=== PATIENT | female | born 1980 | race Caucasian/White ===

== ENCOUNTER 2016-06-02 09:27 | Emergency (ER) | payer OTHER ==
[2016-06-02 09:39] VITALS: BP 123/79; PULSE 96; TEMP 98.6; BMI 22.6
[2016-06-02] MEDS ORDERED: ONDANSETRON *ODT* 4 MG TABLET SL ONE (09:55)
[2016-06-02] MEDS ORDERED: ONDANSETRON *ODT* 4 MG TABLET ONE (10:02)
--- NOTE | 2016-06-02 10:03 | PDOC ---
History of Present Illness - General Chief Complaint: Nausea/Vomiting Stated Complaint: ABD PAIN, VOMITING Time Seen by Provider: 06/02/16 09:49 History Source: Patient Exam Limitations: No Limitations - History of Present Illness Initial Comments: CHIEF COMPLAINT: 36 y/o afebrile female with no significant PMH c/o nausea and vomiting since 6am. HISTORY OF PRESENT ILLNESS: The patient admits both of her children had the stomach bug a few days ago. She states since she's started vomiting she's had a headache. She denies f/c, cough, runny nose, CP, SOB, abd pain, diarrhea, back pain, hematuria. She has not attempted to eat or drink anything today. Her LMP was 05/21/16. Vital signs on arrival are within normal limits. REVIEW OF SYSTEMS: GENERAL/CONSTITUTIONAL: No fever/chills. No weakness. No weight change. HEAD, EYES, EARS, NOSE AND THROAT: No change in vision. No ear pain or discharge. No sore throat. CARDIOVASCULAR: No chest pain or shortness of breath. RESPIRATORY: No cough, wheezing, or hemoptysis. GASTROINTESTINAL: +nausea and vomiting. No diarrhea or constipation. No abd pain. GENITOURINARY: No dysuria, frequency, or change in urination. MUSCULOSKELETAL: No joint or muscle swelling or pain. No neck or back pain. SKIN: No rash or easy bruising. NEUROLOGIC: +headache. No vertigo, loss of consciousness, or loss of sensation. PHYSICAL EXAM: GENERAL: The patient is awake, alert, and fully oriented, in no acute distress. She is non toxic but ill appearing. HEAD: Normal with no signs of trauma. ENT: Pupils equal, round and reactive to light, extraocular movements intact, sclera anicteric, conjunctiva clear. Neck supple. Mucous membranes moist. LUNGS: Clear to auscultation bilaterally. Normal excursion. No respiratory distress or use of accessory muscles. CV: RRR, S1/S2, no MRG. Cap refill < 2 sec. ABDOMEN: Soft, non-distended, TTP of suprapubic region. Negative bhatti's sign. No rebound, guarding, rigidity. BACK: No CVA TTP b/l. EXTREMITIES: Normal range of motion, no edema. NEUROLOGICAL: Normal speech, normal gait. CN II-XII grossly intact. PSYCH: Normal mood, normal affect. SKIN: Warm, dry, normal turgor, no rashes or lesions noted. Past History - Past Medical History Allergies/Adverse Reactions: Allergies Allergy/AdvReac Type Severity Reaction Status Date / Time No Known Allergies Allergy Verified 06/02/16 09:36 Home Medications: Ambulatory Orders Ondansetron [Zofran Odt -] 4 mg SL TID #3 od.tablet 06/02/16 Thyroid Disease: No Other medical history: denies - Immunization History Immunization Up to Date: Yes - Psycho/Social/Smoking Cessation Hx Anxiety: No Suicidal Ideation: No Smoking Status: No Smoking History: Never smoked Have you smoked in the past 12 months: No Number of Cigarettes Smoked Daily: 0 Information on smoking cessation initiated: No Hx Alcohol Use: No Drug/Substance Use Hx: No Substance Use Type: None *Physical Exam - Vital Signs Last Vital Signs Temp Pulse Resp BP Pulse Ox 98.6 F 96 H 17 123/79 99 06/02/16 09:35 06/02/16 09:35 06/02/16 09:35 06/02/16 09:35 06/02/16 09:35 Medical Decision Making - Medical Decision Making A/P: 36 y/o afebrile female with gastroenteritis. Plan is as follows: 1. UA/hcg 2. SL zofran hcg - negative Will give IM toradol for headache. Will discharge the patient home with Gastroenteritis instructions and rx for zofran. Suggested she take tylenol for headache if needed. Instructed her to refrain from eating/drinking anything for the next 12 hours and then slowly reintroduce room temperature liquids. Instructed her to f/u with her doctor on Saturday and return to the ER with any worsening or concerning symptoms. The patient verbalizes understanding of all instructions, has no further questions and is awaiting discharge. *DC/Admit/Observation/Transfer Diagnosis at time of Disposition: Gastroenteritis - Discharge Dispostion Disposition: HOME Condition at time of disposition: Improved - Prescriptions Prescriptions: Ondansetron [Zofran Odt -] 4 mg SL TID #3 od.tablet - Referrals Referrals: Homa Garcia MD [Primary Care Provider] - Call tomorrow - Patient Instructions Printed Discharge Instructions: Gastroenteritis Diet, DI for Viral Gastroenteritis -- Adult Additional Instructions: Discharge Instructions: -Avoid eating/drinking for the next 12 hours -Take zofran for nausea and tylenol for headache if needed -Get plenty of rest -This evening, start slowly sipping room temperature liquids and advance bland diet if tolerated -Follow up with your doctor within 1 week -Return to the ER with any worsening or concerning symptoms
[2016-06-02 11:06] LABS: URINE APPEARANCE SLCLOUDY; URINE BILIRUBIN NEGATIVE (NEGATIVE); URINE COLOR YELLOW; URINE GLUCOSE (UA) NEGATIVE (NEGATIVE); URINE KETONE NEGATIVE (NEGATIVE); URINE LEUK ESTERASE NEGATIVE (NEGATIVE); URINE NITRITE NEGATIVE (NEGATIVE); URINE PROTEIN NEGATIVE (NEGATIVE); URINE UROBILINOGEN NEGATIVE E.U./dl (0.2-1.0)
[2016-06-02 11:09] LABS: URINE BLOOD 1+ (NEGATIVE)
[2016-06-02 11:10] LABS: URINE MUCUS MANY; URINE RBC 4 /hpf (0-3); URINE WBC <1 /hpf (3-5)
[2016-06-02] MEDS ORDERED: KETOROLAC TROMETHAMINE 60 MG/2 ML VIAL IM ONE (11:14)
[2016-06-02] MEDS ORDERED: KETOROLAC TROMETHAMINE 60 MG/2 ML VIAL ONE (11:20)
== END 2016-06-02 11:56 | disposition home or self-care (01) ==
LOC: JERFT 09:27
PROC: 3E0233Z Introduction of Anti-inflammatory into Muscle, Percutaneous Approach (ICD-10-PCS; principal; 2016-06-02)
DX: K52.9 Noninfective gastroenteritis and colitis, unspecified (principal)
CPT/HCPCS: 81003; 81015; 84703; 96372; 99281-25

== ENCOUNTER 2016-06-25 08:24 | Emergency (ER) | payer OTHER ==
[2016-06-25 08:37] VITALS: BP 108/77; PULSE 96; TEMP 98.2; BMI 23.3
[2016-06-25] MEDS ORDERED: ACETAMINOPHEN 500 MG TABLET (FP) ONE (09:08)
--- NOTE | 2016-06-25 10:19 | PDOC ---
History of Present Illness - General Chief Complaint: Cold Symptoms Stated Complaint: COUGH,SORE THROAT,EARACHE Time Seen by Provider: 06/25/16 08:59 History Source: Patient Exam Limitations: No Limitations - History of Present Illness Initial Comments: 06/25/16 10:16 My chief complaint: Bilateral ear pain, sore throat, productive cough with yellowish phlegm 3 days History of present illness: Patient is a 36-year-old female with no significant medical history who works with [employer] and here today complaining of bilateral ear pain, stroke pain and productive cough with yellowish phlegm 3 days. Patient reports that she has chest discomfort when coughing. Patient denies any difficulty breathing. Patient denies having influenza vaccine. Patient reports that a lot of the children are sick and staff as well. Patient does not have any difficulty swallowing. Patient does not have any hearing loss. Timing/Duration: unsure, getting worse Severity: moderate Associated Symptoms: reports: fever/chills, other (ear pain, cough , sore throat ) Past History - Past Medical History Allergies/Adverse Reactions: Allergies Allergy/AdvReac Type Severity Reaction Status Date / Time No Known Allergies Allergy Verified 06/25/16 08:32 Home Medications: Ambulatory Orders Azithromycin [Zithromax 250mg Tablets -] 250 mg PO UTDICT #6 tab 06/25/16 Fexofenadine HCl [Chichi Allergy] 180 mg PO DAILY #7 tablet 06/25/16 Guaifenesin Dm [Mucinex Dm -] 1 tab PO Q12H PRN #10 tab.er.12h MDD 2 06/25/16 Thyroid Disease: No Other medical history: DENIES. - Immunization History Immunization Up to Date: Yes - Psycho/Social/Smoking Cessation Hx Anxiety: No Suicidal Ideation: No Smoking Status: No Smoking History: Never smoked Have you smoked in the past 12 months: No Number of Cigarettes Smoked Daily: 0 Hx Alcohol Use: No Drug/Substance Use Hx: No Substance Use Type: None Review of Systems - Review of Systems Able to Perform ROS?: Yes Constitutional: Yes: Chills, Fever HEENTM: Yes: Ear Pain (b/l ), Throat Pain Respiratory: Yes: Cough, Productive cough (yellowish ) Cardiac (ROS): Yes: Chest Pain (when coughing ) ABD/GI: No: Symptoms Reported : No: Symptoms Reported Musculoskeletal: No: Symptoms Reported Integumentary: No: Symptoms Reported Neurological: No: Symptoms reported *Physical Exam - Vital Signs Last Vital Signs Temp Pulse Resp BP Pulse Ox 98.2 F 96 H 20 108/77 98 06/25/16 08:32 06/25/16 08:32 06/25/16 08:32 06/25/16 08:32 06/25/16 08:32 - Physical Exam General Appearance: Yes: Appropriately Dressed HEENT: positive: Pharyngeal Erythema, TM Erythema (b/l ). negative: Tonsillar Exudate, Tonsillar Erythema, Nasal Congestion, Rhinorrhea, Sinus Tenderness Neck: negative: Lymphadenopathy (R), Lymphadenopathy (L) Respiratory/Chest: positive: Lungs Clear, Normal Breath Sounds. negative: Chest Tender, Respiratory Distress Cardiovascular: positive: Regular Rhythm, Regular Rate, S1, S2 Integumentary: positive: Normal Color ED Treatment Course - ADDITIONAL ORDERS Additional order review: 06/25/16 09:00 Influenza Types A,B Antigen ([facility]SON) - Final Nasopharyngeal Swab - Final 06/25/16 09:00 Group A Strep Rapid Antigen - Final Throat Medical Decision Making - Medical Decision Making 06/25/16 10:17 Patient is a 36-year-old female with no significant medical history who works with [employer] and here today complaining of bilateral ear pain, stroke pain and productive cough with yellowish phlegm 3 days. Patient reports that she has chest discomfort when coughing. Patient denies any difficulty breathing. Patient denies having influenza vaccine. Patient reports that a lot of the children are sick and staff as well. Patient does not have any difficulty swallowing. Patient does not have any hearing loss. Productive cough, Pharyngitis Otitis media Plan: Mucinex DM 1 tab every 12 hours when necessary coughing Chichi 180 mg daily 7 days Azithromycin 250 mg 2 tablets today then 1 tab daily for following 4 days Tylenol 1 g here *DC/Admit/Observation/Transfer Diagnosis at time of Disposition: Bronchitis Otitis media Qualifiers: Otitis media type: unspecified Laterality: bilateral Chronicity: unspecified Qualified Code(s): H66.93 - Otitis media, unspecified, bilateral - Discharge Dispostion Disposition: HOME Condition at time of disposition: Stable - Patient Instructions Additional Instructions: DRink A lot a fluids and rest Return to emergency room if symptoms worsen any difficulty breathing or new symptoms develop Follow-up with your primary care provider within the next few days Patient voiced understanding of discharge instructions and all questions were answered - Post Discharge Activity Work/School Note: Back to Work
== END 2016-06-25 10:29 | disposition home or self-care (01) ==
LOC: JERFT 08:24
DX: J20.9 Acute bronchitis, unspecified (principal); H66.93 Otitis media, unspecified, bilateral
CPT/HCPCS: 87070; 87430; 87804; 99281-25

== ENCOUNTER 2016-08-20 15:56 | Emergency (ER) | payer OTHER ==
[2016-08-20 16:04] VITALS: TEMP 97.6
--- NOTE | 2016-08-20 16:36 | PDOC ---
History of Present Illness - General History Source: Patient Exam Limitations: No Limitations - History of Present Illness Initial Comments: 08/20/16 16:46 Patient is a 36 year old female, , 5 weeks with no significant past medical history who presents to the ED with abdominal cramping. Patient notes that she developed abdominal cramping earlier today localized to the suprapubic region and when she went to urinate she noticed scant blood on the tissue. She notes her LMP was 07/11/16. She denies fever, chills, nausea, vomiting, diarrhea, constipation, chest pain, SOB, headache or blurry vision. She denies dyuria, hematuria, urgency, frequency or vaginal discharge. PSH: 1 <Bruna Gao - Last Filed: 08/20/16 17:04> <Desi Morrell - Last Filed: 08/20/16 20:52> - General Chief Complaint: Vaginal Bleeding Stated Complaint: VAGINAL BLEEDING, 5 WKS Time Seen by Provider: 08/20/16 16:28 Past History <Bruna Gao - Last Filed: 08/20/16 17:04> - Past Medical History Thyroid Disease: No - Immunization History Immunization Up to Date: Yes - Psycho/Social/Smoking Cessation Hx Anxiety: No Suicidal Ideation: No Smoking Status: No Smoking History: Never smoked Have you smoked in the past 12 months: No Number of Cigarettes Smoked Daily: 0 Information on smoking cessation initiated: No Hx Alcohol Use: No Drug/Substance Use Hx: No Substance Use Type: None <Desi Morrell - Last Filed: 08/20/16 20:52> - Past Medical History Allergies/Adverse Reactions: Allergies Allergy/AdvReac Type Severity Reaction Status Date / Time No Known Allergies Allergy Verified 08/20/16 16:02 Home Medications: Ambulatory Orders NK [No Known Home Medication] 08/20/16 Review of Systems - Review of Systems Able to Perform ROS?: Yes Comments:: 08/20/16 16:47 CONSTITUTIONAL: Absent: fever, chills, diaphoresis, generalized weakness, malaise, loss of appetite HEENT: Absent: rhinorrhea, nasal congestion, throat pain, throat swelling, difficulty swallowing, mouth swelling, ear pain, eye pain, visual Changes CARDIOVASCULAR: Absent: chest pain, syncope, palpitations, irregular heart rate, lightheadedness , peripheral edema RESPIRATORY: Absent: cough, shortness of breath, dyspnea with exertion, orthopnea, wheezing, stridor, hemoptysis GASTROINTESTINAL: Present: abdominal cramping Absent: abdominal pain, abdominal distension, nausea, vomiting, diarrhea, constipation, melena, hematochezia GENITOURINARY: Absent: dysuria, frequency, urgency, hesitancy, hematuria, flank pain, genital pain MUSCULOSKELETAL: Absent: myalgia, arthralgia, joint swelling SKIN: Absent: rash, itching, pallor HEMATOLOGIC/IMMUNOLOGIC: Absent: easy bleeding, easy bruising, lymphadenopathy, frequent infections ENDOCRINE: Absent: unexplained weight gain, unexplained weight loss, heat intolerance, cold intolerance NEUROLOGIC: Absent: headache, focal weakness or paresthesias, dizziness, unsteady gait, seizure, mental status changes, bladder or bowel incontinence PSYCHIATRIC: Absent: anxiety, depression, suicidal or homicidal ideation, hallucinations. <Bruna Gao - Last Filed: 08/20/16 17:04> *Physical Exam - Vital Signs Last Vital Signs Temp Pulse Resp BP Pulse Ox 97.6 F 111 H 20 128/88 100 08/20/16 16:02 08/20/16 16:02 08/20/16 16:02 08/20/16 16:02 08/20/16 16:02 - Physical Exam Comments: 08/20/16 16:47 GENERAL: Well developed, well nourished. Awake and alert. No acute distress. HEENT: Normocephalic, atraumatic. PERRLA, EOMI. No conjunctival pallor. Sclera are non- icteric. Moist mucous membranes. Oropharynx is clear. NECK: Supple. Full ROM. No JVD. Carotid pulses 2+ and symmetric, without bruits. No thyromegaly. No lymphadenopathy. CARDIOVASCULAR: Regular rate and rhythm. No murmurs, rubs, or gallops. Distal pulses are 2+ and symmetric. PULMONARY: No evidence of respiratory distress. Lungs clear to auscultation bilaterally. No wheezing, rales or rhonchi. ABDOMINAL: Soft. Non-tender. Non-distended. No rebound or guarding. No organomegaly. Normoactive bowel sounds. MUSCULOSKELETAL Normal range of motion at all joints. No bony deformities or tenderness. No CVA tenderness. EXTREMITIES: No cyanosis. No clubbing. No edema. No calf tenderness. SKIN: Warm and dry. Normal capillary refill. No rashes. No jaundice. NEUROLOGICAL: Alert, awake, appropriate. Cranial nerves 2-12 intact. No deficits to light touch and temperature in face, upper extremities and lower extremities. No motor deficits in the in face, upper extremities and lower extremities. Normoreflexic in the upper and lower extremities. Normal speech. PSYCHIATRIC: Cooperative. Good eye contact. Appropriate mood and affect. PELVIC: +scant blood reported. <Bruna Gao - Last Filed: 08/20/16 17:04> - Vital Signs Last Vital Signs Temp Pulse Resp BP Pulse Ox 97.6 F 111 H 20 128/88 100 08/20/16 16:02 08/20/16 16:02 08/20/16 16:02 08/20/16 16:02 08/20/16 16:02 <Desi Morrell - Last Filed: 08/20/16 20:52> ED Treatment Course - LABORATORY CBC & Chemistry Diagram: 08/20/16 17:00 <Desi Morrell - Last Filed: 08/20/16 20:52> Medical Decision Making - Medical Decision Making 08/20/16 16:51 36 yo female LMP 07/11/16 -saw ob a few weeks -had US but was dave too soon to see fetus -today had cramping and when shew urinated there was blood on bathroom tissue pmh psh c section for breech imp threatened ab plan cbc type and screen bhcg ,transvag US 08/20/16 20:25 concern for miscarriage versus ectopic -bhcg 1307 but no IUP -no ovary abnormalities -plan repeat bhcg in 48 hours <Desi Morrell - Last Filed: 08/20/16 20:52> *DC/Admit/Observation/Transfer - Attestations Scribe Attestion: 08/20/16 16:48 Documentation prepared by BISHNU Wilks, acting as medical research scientist for Desi Morrell MD. <Bruna Gao - Last Filed: 08/20/16 17:04> <Desi Morrell - Last Filed: 03/27/17 20:52> Diagnosis at time of Disposition: Threatened - Discharge Dispostion Disposition: HOME Condition at time of disposition: Stable - Referrals Referrals: Edie Abebe NP [Primary Care Provider] - - Patient Instructions Printed Discharge Instructions: DI for Threatened Additional Instructions: There is no visible on the ultrasound but you do have a posItive blood test You may be losing the OR is could be an ectopic YOU MUST HAVE A RETURN FOR A REPEAT ULTRASOUND AND BHCG IN 48 HOURS
[2016-08-20 17:16] LABS: BASOPHIL 0.2 % (0-2.0); EOSINOPHIL 0.1 % (0-4.5); MCH 31.8 pg (25.7-33.7); MCHC 33.9 g/dl (32.0-36.0); MEAN CELL VOLUME 93.9 fl (80-96); NEUTROPHILS 76.2 % (42.8-82.8); PLATELET COUNT 309 K/MM3 (134-434); WHITE BLOOD COUNT 8.9 K/mm3 (4.0-10.0)
[2016-08-20] MEDS ORDERED: ACETAMINOPHEN 325 MG TABLET (FP) ONE (20:13)
[2016-08-20] MEDS ORDERED: ACETAMINOPHEN 500 MG TABLET (FP) PO ONE (20:19)
[2016-08-20 21:08] VITALS: BP 112/89; PULSE 89
== END 2016-08-20 21:08 | disposition home or self-care (01) ==
LOC: JER 15:56
DX: O20.0 Threatened abortion (principal); Z3A.01 Less than 8 weeks gestation of pregnancy
CPT/HCPCS: 36415; 76817-TC; 84702; 85025; 86850; 86900; 86901; 99283-25

== ENCOUNTER 2017-03-06 07:38 | Emergency (ER) | payer OTHER ==
[2017-03-06 07:46] VITALS: BP 120/80; PULSE 72; TEMP 98.7; BMI 26.6
--- NOTE | 2017-03-06 08:19 | PDOC ---
History of Present Illness - General History Source: Patient - History of Present Illness Timing/Duration: reports: other (2 days ago) Associated Symptoms: reports: nasal congestion. denies: cough, earache, facial pain, fever/chills, nasal drainage, sore throat <Sydnee Huynh - Last Filed: 03/06/17 08:14> <Laura Matos - Last Filed: 03/06/17 12:05> - General Chief Complaint: Cold Symptoms Stated Complaint: SOB Time Seen by Provider: 03/06/17 08:00 Past History - Past Medical History Thyroid Disease: No Other medical history: Patient denies - Reproductive History (#): 3 Para: 2 Cervical CA: No Dysfunctional Uterine Bleeding: No Ectopic : No Endometrial CA: No Polycystic Ovaries: No Therapeutic (s) & number: No Tubal Ligation: No Spontaneous : 0 - Immunization History Immunization Up to Date: Yes - Suicide/Smoking/Psychosocial Hx Smoking Status: No Smoking History: Never smoked Have you smoked in the past 12 months: No Number of Cigarettes Smoked Daily: 0 Information on smoking cessation initiated: No Hx Alcohol Use: No Drug/Substance Use Hx: No Substance Use Type: None <Sydnee Huynh Last Filed: 03/06/17 08:14> <Laura Matos - Last Filed: 03/06/17 12:05> - Past Medical History Allergies/Adverse Reactions: Allergies Allergy/AdvReac Type Severity Reaction Status Date / Time No Known Allergies Allergy Verified 08/20/16 16:02 Home Medications: Ambulatory Orders NK [No Known Home Medication] 08/20/16 Review of Systems - Review of Systems Constitutional: No: Chills, Fever HEENTM: Yes: Nose Congestion. No: Ear Pain, Throat Pain Respiratory: No: Cough, Shortness of Breath ABD/GI: No: Nausea, Vomiting, Abdominal cramping : No: Dysuria <Sydnee Huynh Last Filed: 03/06/17 08:14> *Physical Exam - Vital Signs Last Vital Signs Temp Pulse Resp BP Pulse Ox 98.7 F 72 16 120/80 99 03/06/17 07:43 03/06/17 07:43 03/06/17 07:43 03/06/17 07:43 03/06/17 07:43 - Physical Exam General Appearance: Yes: Appropriately Dressed. No: Apparent Distress HEENT: positive: Normal ENT Inspection, Normal Voice, Other. negative: Scleral Icterus (R), Scleral Icterus (L) Neck: positive: Supple. negative: Lymphadenopathy (R), Lymphadenopathy (L) Respiratory/Chest: positive: Lungs Clear, Normal Breath Sounds. negative: Respiratory Distress Cardiovascular: positive: Regular Rate, S1, S2 Integumentary: positive: Dry, Warm Neurologic: positive: Fully Oriented, Alert, Normal Mood/Affect <Sydnee Huynh - Last Filed: 03/06/17 08:14> - Vital Signs Last Vital Signs Temp Pulse Resp BP Pulse Ox 98.7 F 72 16 120/80 99 03/06/17 07:43 03/06/17 07:43 03/06/17 07:43 03/06/17 07:43 03/06/17 07:43 <Laura Matos - Last Filed: 03/06/17 12:05> Medical Decision Making - Medical Decision Making 03/06/17 08:14 37 yo F, currently 9 weeks w/ no issues w/ so far, here w/ nasal congestion and c/o not being able to breathe through her nose x 2 days. No cough, rhinorrhea, ear pain, f/c. 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 Pt well bekah and stable w/ unremarkable exam. M/l viral URI. I explained to patient that most of the oral antihistamine and nasal decongestant/antihistamine sprays are not recommended for use during . Patient to rest, drink plenty of fluids and contact her OB for further recommendations 03/06/17 08:20 <Sydnee Huynh - Last Filed: 03/06/17 08:14> *DC/Admit/Observation/Transfer <PersianSydnee do Filed: 03/06/17 08:14> - Attestations Physician Attestion: I reviewed the case with the mid-level practitioner and agree with the mid- level practitioner's assessment, diagnosis and disposition. <Laura Matos - Last Filed: 03/06/17 12:05> Diagnosis at time of Disposition: Nasal congestion - Discharge Dispostion Disposition: HOME Condition at time of disposition: Good - Referrals Referrals: SosenkoPorytko,Luz [Primary Care Provider] - - Patient Instructions Printed Discharge Instructions: DI for Viral Upper Respiratory Infection -- Adult Additional Instructions: Rest, maintain adequate hydration and contact your OB for further recommendations - Post Discharge Activity Forms/Work/School Notes: Back to Work
== END 2017-03-06 08:25 | disposition home or self-care (01) ==
LOC: JER 07:38
DX: R09.89 Other specified symptoms and signs involving the circulatory and respiratory systems (principal); O26.892 Other specified pregnancy related conditions, second trimester; Z3A.09 9 weeks gestation of pregnancy
CPT/HCPCS: 99281-25